=== PATIENT | female | born 1955 | race Caucasian/White ===

== ENCOUNTER 2023-02-24 08:37 | Outpatient (CLI) | payer OTHER | END 2023-02-24 08:40 | disposition home or self-care (01) | LOC: SONOGRAMA 08:37 | PROVIDERS: ATTEND Pathology Anatomic Pathology & Clinical Pathology | DX: C07 Malignant neoplasm of parotid gland (principal) ==

== ENCOUNTER 2025-01-20 08:54 | Inpatient (IN) | payer OTHER ==
[~2025-01-20] VITALS: Ht 175.3 cm; Wt 75.3 kg
--- NOTE | 2025-01-20 09:00 | NUR ---
PACIENTE REFIERE DOLOR EN EL CUADRANTE INFERIOR SYED CON DOLOR A PALPACION LA MISMA REFIERE QUE ESTA LLEVA DESDE 1 SEMANA QUE SE LE INTENSIFICO ENTRE DARLENE Y HOY.
[2025-01-20] MEDS ORDERED: ROSUVASTATIN CA40 MG PO (09:02)
[2025-01-20] MEDS ORDERED: SYNTHROID88 MCG PO (09:03)
[2025-01-20] MEDS ORDERED: CARVEDILOL ER40 MG PO (09:03)
[2025-01-20] MEDS ORDERED: 0.9 % SODIUM CHLORIDE 1,000 ML IV STA (09:15)
[2025-01-20] MEDS ORDERED: HYOSCYAMINE SULFATE 0.125 MG TAB.SUBL SL STA (09:15)
[2025-01-20] MEDS ORDERED: MORPHINE SULFATE 4 MG/ML VIAL IV STA (09:16)
[2025-01-20] MEDS ORDERED: DIPHENHYDRAMINE HCL 50 MG/ML VIAL 1ML IV STA (09:16)
--- NOTE | 2025-01-20 09:52 | NUR ---
SE EDUCA SOBRE [place] MEDICO, ESTA REFIERE ENTENDER. SE ADMINISTRAN MEDICAMENTOS Y SE EXTRAEN MUESTRAS DE LABORATORIO [facility] ORDEN MEDICA. SE NOTIFICA CT.
[2025-01-20 09:57] LABS: HEMOGLOBIN 12.3 g/dL (12.0-15.00); MEAN CELL VOLUME 79.9 fL (80.00-100.00); MEAN CORPUSCULAR HEMOGLOBIN 26.5 pg (27.00-32.0); MEAN CORPUSCULAR HGB CONC 33.2 g/dl (32.0-36.0); PLATELET COUNT 262 K/uL (150-450); RED BLOOD COUNT 4.63 M/uL (4.00-6.00); RED CELL DISTRIBUTION WIDTH 13.7 % (11.5-14.5)
[2025-01-20 10:17] LABS: ALBUMIN 3.4 gm/dL (3.4-5.0); BILIRUBIN TOTAL 0.42 mg/dL (0.3-1.2); CALCIUM 9.1 mg/dL (8.5-10.1); CREATININE SERUM 0.83 mg/dL (0.55-1.02); GFR 67.96; GLOBULINA 3.5 G/DL (2.4-3.5); POTASSIUM 4.16 mEq/L (3.5-5.1); TOTAL PROTEIN 6.9 gm/dL (6.4-8.2)
[2025-01-20 10:18] LABS: INR 1.02; PARTIAL THROMBOPLASTIN TIME 27.6 SECONDS (22.0-34.0); PROTHROMBIN TIME 11.1 SECONDS (9.0-11.5)
[2025-01-20] MEDS ORDERED: KETOROLAC TROMETHAMINE 30 MG VIAL IV STA (11:18)
[2025-01-20] MEDS ORDERED: HYOSCYAMINE SULFATE 0.125 MG TAB.SUBL SL ONE (11:30)
--- NOTE | 2025-01-20 15:31 | NUR ---
SE RECIBE PACIENTE ALERTA Y ORIENTADA X3, CANALIZADA #22 EN LT CON 0.9 NSS BAJANDO 100 ML/HR. PENDIENTE CONSULTA CON DR. RAYMOND MCNEAL.
[2025-01-20] MEDS ORDERED: PIPERACILLIN/TAZOBACTAM SODIUM 3.375 GM VIAL IV STA (15:42)
[2025-01-20] MEDS ORDERED: CIPROFLOXACIN IN 5 % DEXTROSE 200 ML IV SCH (18:14)
[2025-01-20] MEDS ORDERED: METRONIDAZOLE/SODIUM CHLORIDE 100 ML IV SCH (18:14)
[2025-01-20] MEDS ORDERED: MORPHINE SULFATE 2 MG/ML CARTRIDGE IV PRN (18:15)
[2025-01-20] MEDS ORDERED: FAMOTIDINE/PF 20 MG in 0.9 % SODIUM CHLORIDE 8 ML IV PUSH SCH (18:15)
[2025-01-20] MEDS ORDERED: PANTOPRAZOLE SODIUM 40 MG in 0.9 % SODIUM CHLORIDE 8 ML IV PUSH SCH (18:17)
[2025-01-20] MEDS ORDERED: CARVEDILOL 3.125 MG TABLET PO SCH (18:19)
[2025-01-20] MEDS ORDERED: LEVALBUTEROL HCL 0.63 MG/3 ML SOLUTION IH SCH (18:42)
[2025-01-20 19:32] LABS: ABG PH 7.437 (7.35-7.45); ABG PO2 90.4 mmHg (80-100); BASE EXCESS 0.4 mmol/l; BICARBONATE 24.3 mmol/l (23-25); SaO2 97.3 %; Tco2 25.4 mmol/l
[2025-01-20 19:33] LABS: ABG pCO2 36.7 mmHg (35-45); allen test SATISFACTORY; o2 21 %; puncture site RADIAL LEFT
[2025-01-20 20:04] LABS: PH,URINE 7.5 (5.0-8.0); URINE APPEARANCE Clear; URINE BILIRRUBIN Negative (NEGATIVE); URINE BLOOD Negative; URINE COLOR Yellow; URINE GLUCOSE Negative (NEGATIVE); URINE KETONE Negative (NEGATIVE); URINE LEUKOCYTE Negative; URINE NITRATE Negative; URINE PROTEIN Trace (NEGATIVE)
[2025-01-20 20:08] LABS: URINE BACTERIA 20.8 uL (0.0-1933); URINE EPITHELIAL CELLS 15.8 uL (0.0-38.8); URINE RBC 37.1 uL (0.0-20.8); URINE WBC 22.3 uL (0.0-23.2)
[2025-01-20 20:19] LABS: URINE CAST 0.14 uL (0.0-1.40)
[2025-01-21 01:23] VITALS: BP 133/64; O2SAT 96
[2025-01-21] MEDS ORDERED: LEVOTHYROXINE SODIUM 88 MCG TABLET PO SCH (06:00)
[2025-01-21 07:43] VITALS: BP 154/75
[2025-01-21] MEDS ORDERED: HYOSCYAMINE SULFATE 0.125 MG TAB.SUBL SL PRN (09:30)
[2025-01-21] MEDS ORDERED: BUDESONIDE 0.5 MG/2 ML AMPUL.NEB IH NR (10:00)
[2025-01-21] MEDS ORDERED: ATORVASTATIN CALCIUM 20 MG TABLET PO NR (10:00)
[2025-01-21 16:57] VITALS: BP 145/63
[2025-01-21] MEDS ORDERED: CARVEDILOL 3.125 MG TABLET PO SCH (17:00)
[2025-01-21] MEDS ORDERED: ONDANSETRON HCL 4 MG in DEXTROSE 5 % IN WATER 50 ML IV PRN (17:15)
[2025-01-21] MEDS ORDERED: BUDESONIDE 0.5 MG/2 ML AMPUL.NEB IH SCH (21:00)
[2025-01-21] MEDS ORDERED: TRAZODONE HCL 50 MG TABLET PO SCH (21:00)
[2025-01-21] MEDS ORDERED: GABAPENTIN 800 MG TABLET PO SCH (21:00)
[2025-01-22 00:37] VITALS: BP 111/55; O2SAT 99
[2025-01-22 06:07] LABS: HEMOGLOBIN 11.4 g/dL (12.0-15.00); MEAN CELL VOLUME 80.2 fL (80.00-100.00); MEAN CORPUSCULAR HEMOGLOBIN 26.2 pg (27.00-32.0); MEAN CORPUSCULAR HGB CONC 32.7 g/dl (32.0-36.0); PLATELET COUNT 237 K/uL (150-450); RED BLOOD COUNT 4.37 M/uL (4.00-6.00); RED CELL DISTRIBUTION WIDTH 13.9 % (11.5-14.5)
[2025-01-22 06:46] LABS: ALBUMIN 2.9 gm/dL (3.4-5.0); BILIRUBIN TOTAL 0.39 mg/dL (0.3-1.2); CALCIUM 8.5 mg/dL (8.5-10.1); CREATININE SERUM 0.78 mg/dL (0.55-1.02); GFR 73.01; GLOBULINA 3.1 G/DL (2.4-3.5); MAGNESIUM 2.2 mg/dL (1.8-2.4); PHOSPHOROUS 3.4 mg/dL (2.5-4.9); POTASSIUM 4.16 mEq/L (3.5-5.1)
[2025-01-22 06:49] LABS: C-REACTIVE PROTEIN 3.51 MG/DL (0.00-0.29)
[2025-01-22 08:04] VITALS: BP 122/58
[2025-01-22] MEDS ORDERED: ATORVASTATIN CALCIUM 20 MG TABLET PO SCH (09:00)
[2025-01-22 16:58] VITALS: BP 115/62
[2025-01-23 00:54] VITALS: BP 127/68; O2SAT 95
[2025-01-23] MEDS ORDERED: PANTOPRAZOLE SODIUM 40 MG/VIAL VIAL ONE (07:46)
[2025-01-23 08:34] VITALS: BP 117/61; O2SAT 97
[2025-01-23] MEDS ORDERED: CIPRO500 MG PO (12:39)
[2025-01-23] MEDS ORDERED: METRONIDAZOLE500 MG PO (12:42)
[2025-01-23] MEDS ORDERED: LEVSIN/SL0.125 MG SL (12:44)
[2025-01-23] MEDS ORDERED: PROTONIX40 MG PO (12:45)
[2025-01-23] MEDS ORDERED: MEDROL4 MG PO (12:46)
[2025-01-23] MEDS ORDERED: BUDESONIDE0.5 MG/2 M IH (12:50)
== END 2025-01-23 13:24 | disposition home or self-care (01) | DRG 392 ==
LOC: ER 08:57 → MEDI 18:33
PROVIDERS: General Practice; Internal Medicine Infectious Disease; ADMIT Internal Medicine; ATTEND Internal Medicine
PROC: BW21ZZZ Computerized Tomography (CT Scan) of Abdomen and Pelvis (ICD-10-PCS; principal; 2025-01-20)
PROC: 3E0F7GC Introduction of Other Therapeutic Substance into Respiratory Tract, Via Natural or Artificial Opening (ICD-10-PCS; 2025-01-21)
DX: K57.32 Diverticulitis of large intestine without perforation or abscess without bleeding (principal); K90.49 Malabsorption due to intolerance, not elsewhere classified; J45.901 Unspecified asthma with (acute) exacerbation; I10 Essential (primary) hypertension; E03.9 Hypothyroidism, unspecified; E78.5 Hyperlipidemia, unspecified

== ENCOUNTER 2025-08-28 06:01 | Emergency (ER) | payer OTHER ==
[~2025-08-28] VITALS: Ht 175.3 cm; Wt 75.3 kg
[~2025-08-28 06:01] MED LIST: BUDESONIDE0.5 MG/2 M IH; CARVEDILOL ER40 MG PO; CIPRO500 MG PO; LEVSIN/SL0.125 MG SL; MEDROL4 MG PO; METRONIDAZOLE500 MG PO; PROTONIX40 MG PO; ROSUVASTATIN CA40 MG PO; SYNTHROID88 MCG PO
[2025-08-28] MEDS ORDERED: NEURONTIN800 MG PO (06:17)
[2025-08-28] MEDS ORDERED: 0.9 % SODIUM CHLORIDE 1,000 ML IV STA (07:15)
[2025-08-28] MEDS ORDERED: KETOROLAC TROMETHAMINE 15 MG VIAL IV STA (07:16)
[2025-08-28] MEDS ORDERED: CEFTRIAXONE SODIUM 2,000 MG VIAL IV STA (07:16)
[2025-08-28] MEDS ORDERED: KETOROLAC TROMETHAMINE 30 MG VIAL ONE ×2 (07:36→08:30)
[2025-08-28] MEDS ORDERED: CEFTRIAXONE SODIUM 2,000 MG VIAL ONE (07:37)
[2025-08-28 07:45] LABS: BASO % 0.4 % (0.1-1.2); EOS # 0.10 (0.04-0.54); EOS % 1.0 % (0.7-7.0); LYMPH # 2.09 (1.18-3.74); LYMPH % 21.1 % (19.3-53.1); MEAN PLATELET VOLUME 10.20 fl (9.4-12.4); MONO # 0.63 (0.24-0.82); MONO % 6.4 % (4.7-12.5); NEUT # 7.04 (1.56-6.13); NEUT % 70.9 % (34.0-71.1); RED CELL DISTRIBUTION WIDTH 13.5 % (11.6-14.4)
[2025-08-28 07:56] LABS: URINE APPEARANCE Turbid; URINE BILIRRUBIN Small (NEGATIVE); URINE BLOOD Large; URINE COLOR Dark Yellow; URINE GLUCOSE Negative (NEGATIVE); URINE KETONE Negative (NEGATIVE); URINE LEUKOCYTE Large; URINE NITRATE Positive; URINE UROBILINOGEN 1.0 E.U./dl
[2025-08-28 07:58] LABS: URINE BACTERIA 1124.3 uL (0.0-1933); URINE EPITHELIAL CELLS 25.9 uL (0.0-38.8)
[2025-08-28 08:12] LABS: ALT/SGPT 31.0 U/L (12-78); AST/SGOT 26.0 U/L (15-37); BILIRUBIN TOTAL 0.62 mg/dL (0.3-1.2); BUN CREA RATIO 20.0 (7.0-25.0); CREATININE SERUM 0.93 mg/dL (0.55-1.02); GFR 59.43; GLOBULINA 3.2 G/DL (2.4-3.5); GLUCOSE FASTING 123.0 mg/dL (65-100); OSMOLALITY SERUM 294.0 MOSM/KG (275-295)
[2025-08-28 08:15] LABS: TYPE CELLS TRANSITIONAL; URINE CAST 0.00 uL (0.0-1.40); URINE PROTEIN 300 (NEGATIVE); URINE RBC > 10558.9 uL (0.0-20.8); URINE WBC > 5548.3 uL (0.0-23.2)
[2025-08-28] MEDS ORDERED: KETOROLAC TROMETHAMINE 30 MG VIAL IM STA (08:29)
== END 2025-08-28 09:52 | disposition home or self-care (01) ==
LOC: ER 06:01
PROVIDERS: General Practice
DX: N39.0 Urinary tract infection, site not specified (principal); Z88.8 Allergy status to other drugs, medicaments and biological substances
CPT/HCPCS: 36415; 96365; 96372; 99282; J0696; J1885; J7030